=== PATIENT | male | born 1950 | race Caucasian/White ===

== ENCOUNTER 2016-08-26 15:34 | Inpatient (IN) | payer MEDICAID ==
[~2016-08-26] VITALS: Ht 167.6 cm; Wt 77.3 kg
[~2016-08-26 15:34] MED LIST: CATAPRES-T0.2 MG/24 TD; CEPHULAC10 GM/15 M PO; CLONIDINE0.1 MG PO; COMBIVENT INH14.7 GM IH; CORGARD40 MG PO; ENULOSE10 GM/151 PO; HYDROCHLOROTHIA25 MG PO; IBUPROHM200 MG PO; LANSOPRAZOLE30 MG PO; METOPROLOL TAR100 MG PO; NOVOLOG FLEX100 U/ML INJ; PREVACID 30MG30 M1 PO; PRINIVIL20 MG PO; XANAX .25M0.25 MG/TA PO
[2016-08-26 16:48] LABS: BASO # 0.1 (0.0-0.2); BASO % 1.2 % (0.0-2.0); EOS # 0.1 (0.0-0.7); GRAN # 2.5 (1.4-6.5); GRAN % 62.1 % (42.2-75.2); LYMPH # 1.1 (1.2-3.4); LYMPH % 25.9 % (20.0-51.0); MEAN CELL VOLUME 95 fl (80.0-100.0); MEAN CORPUSCULAR HGB CONC 33 g/dl (33.0-37.0); MEAN PLATELET VOLUME 10.9 fl (7.4-10.4); MONO # 0.4 (0.1-0.6); MONO % 8.6 % (1.7-9.3); PLATELET COUNT 125 K/mm3 (130-400); RED BLOOD COUNT 2.98 M/mm3 (4.20-5.60); REDCELL DISTRIBUTION WIDTH-CV 14.7 % (11.5-14.5); WHITE BLOOD COUNT 4.1 K/mm3 (4.8-10.8)
[2016-08-26] MEDS ORDERED: LOPRESSOR 225 MG/TAB PO (16:52)
[2016-08-26] MEDS ORDERED: CATAPRES 0.1MG0.1 MG PO (16:53)
[2016-08-26 16:55] LABS: HEMATOCRIT 28.4 % (42.0-52.0); HEMOGLOBIN 9.3 g/dl (13.5-18.0); MEAN CORPUSCULAR HEMOGLOBIN 31 pg (27.0-31.0)
[2016-08-26] MEDS ORDERED: ALDACTONE50 MG PO (16:55)
[2016-08-26] MEDS ORDERED: COMBIRESP IH (16:55)
[2016-08-26 17:05] LABS: ANION GAP 11 mmol/L (7-16); BLOOD UREA NITROGEN 23 mg/dL (9-20); CALCIUM 8.6 mg/dL (8.4-10.2); CARBON DIOXIDE 18 mmol/L (22-30); CHLORIDE 112 mmol/L (98-107); GLUCOSE 120 mg/dL (74-106); POTASSIUM 4.7 mmol/L (3.4-5.0); SODIUM 141 mmol/L (137-145)
[2016-08-26 17:09] LABS: C-REACTIVE PROTEIN < 0.5 mg/dL (0.0-0.9)
[2016-08-26 17:24] LABS: ERYTHROCYTE SEDIMENTATION RATE 55 mm/hr (0-30)
[2016-08-26 17:59] VITALS: BP 142/65; PULSE 104; TEMP 98.6
[2016-08-26 22:25] VITALS: BP 147/62; PULSE 66; TEMP 97.6
[2016-08-27] VITALS (8 sets, daily range): BP systolic 114–153; BP diastolic 45–63; PULSE 55–74; TEMP 97.3–98
[2016-08-27 10:09] LABS: EOS # 0.2 (0.0-0.7); EOS % 5.7 % (0-4.0); GRAN # 1.8 (1.4-6.5); GRAN % 46.5 % (42.2-75.2); LYMPH # 1.4 (1.2-3.4); LYMPH % 36.4 % (20.0-51.0); MEAN CELL VOLUME 98 fl (80.0-100.0); MEAN CORPUSCULAR HGB CONC 32 g/dl (33.0-37.0); MONO # 0.4 (0.1-0.6); MONO % 10.1 % (1.7-9.3); PLATELET COUNT 106 K/mm3 (130-400); RED BLOOD COUNT 2.78 M/mm3 (4.20-5.60); WHITE BLOOD COUNT 3.9 K/mm3 (4.8-10.8)
[2016-08-27 10:11] LABS: CALCIUM 8.1 mg/dL (8.4-10.2); CREATININE, serum 1.08 mg/dL (0.66-1.25); POTASSIUM 4.8 mmol/L (3.4-5.0)
[2016-08-27 10:26] LABS: HEMATOCRIT 27.1 % (42.0-52.0); HEMOGLOBIN 8.7 g/dl (13.5-18.0); MEAN CORPUSCULAR HEMOGLOBIN 31 pg (27.0-31.0)
[2016-08-28] VITALS (7 sets, daily range): BP systolic 104–156; BP diastolic 52–62; PULSE 57–70; TEMP 97–98.2
[2016-08-28 05:26] LABS: PH 5 (5-8); SQUAMOUS EPITHELIAL 0-2 /hpf; URINE APPEARANCE Cloudy; URINE BACTERIA Rare /hpf; URINE BILIRUBIN Positive (NEGATIVE); URINE BLOOD 3+ (NEGATIVE); URINE COLOR Amber; URINE GLUCOSE 1+ (NEGATIVE); URINE KETONE Trace (NEGATIVE); URINE RBC >50 /hpf; URINE UROBILINOGEN >=4.0 mg/dL (NEGATIVE); URINE WBC >50 /hpf
[2016-08-28 08:10] LABS: BASO % 1.1 % (0.0-2.0); EOS # 0.2 (0.0-0.7); EOS % 5.9 % (0-4.0); GRAN # 1.7 (1.4-6.5); GRAN % 46.6 % (42.2-75.2); LYMPH # 1.2 (1.2-3.4); LYMPH % 34.6 % (20.0-51.0); MEAN CELL VOLUME 98 fl (80.0-100.0); MEAN CORPUSCULAR HGB CONC 32 g/dl (33.0-37.0); MEAN PLATELET VOLUME 10.9 fl (7.4-10.4); MONO # 0.4 (0.1-0.6); MONO % 11.5 % (1.7-9.3); PLATELET COUNT 92 K/mm3 (130-400); RED BLOOD COUNT 2.65 M/mm3 (4.20-5.60); REDCELL DISTRIBUTION WIDTH-CV 14.8 % (11.5-14.5); WHITE BLOOD COUNT 3.6 K/mm3 (4.8-10.8)
[2016-08-28 08:18] LABS: HEMATOCRIT 25.9 % (42.0-52.0); HEMOGLOBIN 8.2 g/dl (13.5-18.0); MEAN CORPUSCULAR HEMOGLOBIN 31 pg (27.0-31.0)
[2016-08-28 09:09] LABS: CALCIUM 7.5 mg/dL (8.4-10.2); CREATININE, serum 1.32 mg/dL (0.66-1.25); POTASSIUM 4.6 mmol/L (3.4-5.0)
[2016-08-29 02:03] VITALS: BP 136/59; PULSE 71; TEMP 97.5
[2016-08-29 05:00] VITALS: BP 120/53; PULSE 71; TEMP 98.5
[2016-08-29 07:18] LABS: HEMATOCRIT 25.8 % (42.0-52.0); HEMOGLOBIN 8.4 g/dl (13.5-18.0)
[2016-08-29 07:37] LABS: CALCIUM 7.9 mg/dL (8.4-10.2); CREATININE, serum 1.39 mg/dL (0.66-1.25); POTASSIUM 5.4 mmol/L (3.4-5.0)
[2016-08-29 09:54] VITALS: BP 127/63; PULSE 77; TEMP 97.7
[2016-08-29 14:24] VITALS: BP 116/44; PULSE 58; TEMP 98
[2016-08-29 18:17] VITALS: BP 124/45; PULSE 69; TEMP 98.9
[2016-08-29 21:28] VITALS: BP 118/51; PULSE 65; TEMP 97.8
[2016-08-30 05:45] VITALS: BP 124/57; PULSE 65; TEMP 97.9
== END 2016-08-30 10:54 | DRG 617 ==
LOC: COL.ER 15:34 → SURG 16:13
PROVIDERS: Emergency Medicine; Family Medicine; Internal Medicine; Orthopaedic Surgery Sports Medicine
PROC: 0Y6J0Z1 Detachment at Left Lower Leg, High, Open Approach (ICD-10-PCS; principal; 2016-08-27 16:00)
DX: E11.622 Type 2 diabetes mellitus with other skin ulcer (principal); L97.224 Non-pressure chronic ulcer of left calf with necrosis of bone; M86.8X6 Other osteomyelitis, lower leg; E87.2 Acidosis; G82.20 Paraplegia, unspecified; E11.69 Type 2 diabetes mellitus with other specified complication; K70.30 Alcoholic cirrhosis of liver without ascites; N17.9 Acute kidney failure, unspecified; B96.4 Proteus (mirabilis) (morganii) as the cause of diseases classified elsewhere; I12.9 Hypertensive chronic kidney disease with stage 1 through stage 4 chronic kidney disease, or unspecified chronic kidney disease; E11.22 Type 2 diabetes mellitus with diabetic chronic kidney disease; N18.9 Chronic kidney disease, unspecified; E11.42 Type 2 diabetes mellitus with diabetic polyneuropathy; Z87.891 Personal history of nicotine dependence; Z79.4 Long term (current) use of insulin; N31.9 Neuromuscular dysfunction of bladder, unspecified; V89.2XXS Person injured in unspecified motor-vehicle accident, traffic, sequela
CPT/HCPCS: 99232-AI; 99233-AI; 99239; A4315; A9284; J0690; J0692; J2250; J2405; J2704; J3010; J3370; J7030; J7050; Q9967

== ENCOUNTER 2016-08-30 10:12 | Inpatient (IN) | payer MEDICAID ==
[~2016-08-30] VITALS: Ht 167.6 cm; Wt 56.4 kg
[~2016-08-30 10:12] MED LIST changes: +ALDACTONE50 MG PO; +CATAPRES 0.1MG0.1 MG PO; +COMBIRESP IH; +LOPRESSOR 225 MG/TAB PO
[2016-08-30 11:44] VITALS: BP 127/34; PULSE 69; TEMP 98.8
[2016-08-30 16:42] VITALS: BP 131/45; PULSE 64; TEMP 97.8
[2016-08-30 17:55] VITALS: BP 131/45; PULSE 64; TEMP 97.8
[2016-08-30 18:02] LABS: CALCIUM 8.2 mg/dL (8.4-10.2); CREATININE, serum 1.16 mg/dL (0.66-1.25); POTASSIUM 5.3 mmol/L (3.4-5.0)
[2016-08-31 04:54] VITALS: BP 134/51; PULSE 72; TEMP 98.4
[2016-08-31 16:20] VITALS: BP 115/50; PULSE 60; TEMP 97.9
[2016-09-01 04:38] VITALS: BP 138/59; PULSE 58; TEMP 97.8
[2016-09-01 07:35] LABS: MEAN CELL VOLUME 95 fl (80.0-100.0); MEAN CORPUSCULAR HGB CONC 33 g/dl (33.0-37.0); MEAN PLATELET VOLUME 11.4 fl (7.4-10.4); PLATELET COUNT 91 K/mm3 (130-400); RED BLOOD COUNT 2.44 M/mm3 (4.20-5.60); WHITE BLOOD COUNT 2.8 K/mm3 (4.8-10.8)
[2016-09-01 07:40] LABS: CALCIUM 7.9 mg/dL (8.4-10.2); CREATININE, serum 1.14 mg/dL (0.66-1.25); MAGNESIUM 2.1 mg/dL (1.6-2.3); POTASSIUM 4.9 mmol/L (3.4-5.0)
[2016-09-01 07:58] LABS: HEMATOCRIT 23.2 % (42.0-52.0); HEMOGLOBIN 7.6 g/dl (13.5-18.0); MEAN CORPUSCULAR HEMOGLOBIN 31 pg (27.0-31.0)
[2016-09-01 07:59] LABS: ADD PATHOLOGY DIFF REVIEW NO
[2016-09-01 09:14] LABS: ANISOCYTOSIS 1+; BAND 2 % (0-10); BASOPHIL 1 % (0-2); EOSINOPHIL 2 % (0-4); NEUTROPHILS 45 % (42.0-75.2); OVALOCYTES 1+; PLATELET ESTIMATE DECREASED (NORMAL); TOTAL CELLS COUNTED 100
[2016-09-01 17:06] VITALS: BP 136/53; PULSE 65; TEMP 97.9
[2016-09-01] MEDS ORDERED: ALDACTONE50 MG PO (20:50)
[2016-09-02] MEDS ORDERED: BP MED (02:02)
[2016-09-02 05:31] VITALS: BP 108/35; PULSE 62; TEMP 98.3
[2016-09-02 10:11] VITALS: BP 128/48; PULSE 65; TEMP 98.9
[2016-09-02 16:35] VITALS: BP 120/51; PULSE 66; TEMP 98.6
[2016-09-02 21:00] VITALS: BP 120/73; PULSE 68
[2016-09-03 04:51] VITALS: BP 110/42; PULSE 71; TEMP 98.4
[2016-09-03 08:49] VITALS: BP 120/57; PULSE 65; TEMP 98.9
[2016-09-03 17:31] VITALS: BP 121/49; PULSE 62; TEMP 98
[2016-09-03 21:00] VITALS: BP 149/59; PULSE 73; TEMP 99
[2016-09-04 06:49] VITALS: BP 137/45; PULSE 70; TEMP 98.3
[2016-09-04 07:55] LABS: HEMATOCRIT 25.9 % (42.0-52.0); HEMOGLOBIN 8.6 g/dl (13.5-18.0)
[2016-09-04 11:20] LABS: PH 5 (5-8); SQUAMOUS EPITHELIAL None Seen /hpf; URINE APPEARANCE Clear; URINE BACTERIA None Seen /hpf; URINE BILIRUBIN Negative (NEGATIVE); URINE BLOOD 2+ (NEGATIVE); URINE COLOR Yellow; URINE GLUCOSE Negative (NEGATIVE); URINE KETONE Negative (NEGATIVE); URINE UROBILINOGEN Negative (NEGATIVE)
[2016-09-04 18:29] VITALS: BP 119/44; PULSE 69; TEMP 98.9
[2016-09-04 20:30] VITALS: BP 132/52; PULSE 79
[2016-09-05 04:20] VITALS: BP 117/45; PULSE 61; TEMP 98.5
[2016-09-05 17:27] VITALS: BP 137/49; PULSE 68; TEMP 98.7
[2016-09-06 05:09] VITALS: BP 135/58; PULSE 71; TEMP 99.9
[2016-09-06 18:10] VITALS: BP 137/42; PULSE 55; TEMP 99.2
[2016-09-07 03:22] VITALS: BP 124/65; PULSE 69; TEMP 97.7
[2016-09-07 16:19] VITALS: BP 130/46; PULSE 60; TEMP 98.4
[2016-09-08 04:25] VITALS: BP 140/53; PULSE 63; TEMP 97.7
[2016-09-08 16:18] VITALS: BP 148/39; PULSE 65; TEMP 98.1
[2016-09-09 04:45] VITALS: BP 111/44; PULSE 62; TEMP 97.6
[2016-09-09] MEDS ORDERED: ASPI325T6 PO (09:44)
[2016-09-09] MEDS ORDERED: CELEXA 20MG20 MG/TAB PO (09:44)
[2016-09-09] MEDS ORDERED: HCTZ 25MG TAB25 MG PO (09:44)
[2016-09-09] MEDS ORDERED: CATAPRES 0.1MG0.1 MG PO (09:45)
[2016-09-09] MEDS ORDERED: ZESTRIL 20MG TA20 MG PO (09:45)
[2016-09-09] MEDS ORDERED: LOPRESSOR 225 MG/TAB PO (09:45)
[2016-09-09] MEDS ORDERED: FERROUS SU325 MG/TAB PO (09:46)
== END 2016-09-09 11:45 | disposition home health service (06) | DRG 948 ==
PROVIDERS: Family Medicine; Internal Medicine
DX: R53.81 Other malaise (principal); L97.429 Non-pressure chronic ulcer of left heel and midfoot with unspecified severity; G82.20 Paraplegia, unspecified; E11.621 Type 2 diabetes mellitus with foot ulcer; Z89.512 Acquired absence of left leg below knee; I10 Essential (primary) hypertension; N31.9 Neuromuscular dysfunction of bladder, unspecified; D50.0 Iron deficiency anemia secondary to blood loss (chronic); F43.21 Adjustment disorder with depressed mood
CPT/HCPCS: 99222-AI; 99232-AI; 99239; J1650

== ENCOUNTER 2017-05-08 17:41 | Inpatient (IN) | payer MEDICAID ==
[~2017-05-08] VITALS: Ht 170.2 cm; Wt 75.2 kg
[~2017-05-08 17:41] MED LIST changes: +ASPI325T6 PO; +BP MED; +CELEXA 20MG20 MG/TAB PO; +FERROUS SU325 MG/TAB PO; +HCTZ 25MG TAB25 MG PO; +ZESTRIL 20MG TA20 MG PO
[2017-05-08 18:39] LABS: BASO % 0.7 % (0.0-2.0); EOS # 0.1 (0.0-0.7); EOS % 2.1 % (0-4.0); GRAN # 3.9 (1.4-6.5); GRAN % 68.6 % (42.2-75.2); HEMATOCRIT 31.3 % (42.0-52.0); HEMOGLOBIN 10.1 g/dl (13.5-18.0); LYMPH # 1.2 (1.2-3.4); LYMPH % 20.8 % (20.0-51.0); MEAN CELL VOLUME 99 fl (80.0-100.0); MEAN CORPUSCULAR HEMOGLOBIN 32 pg (27.0-31.0); MEAN CORPUSCULAR HGB CONC 32 g/dl (33.0-37.0); MEAN PLATELET VOLUME 10.5 fl (7.4-10.4); MONO # 0.4 (0.1-0.6); MONO % 7.6 % (1.7-9.3); PLATELET COUNT 134 K/mm3 (130-400); RED BLOOD COUNT 3.15 M/mm3 (4.20-5.60); WHITE BLOOD COUNT 5.6 K/mm3 (4.8-10.8)
[2017-05-08] MEDS ORDERED: LASIX 20MG TABL20 MG PO (18:42)
[2017-05-08] MEDS ORDERED: MYRBETR25MG PO (18:43)
[2017-05-08] MEDS ORDERED: FERROUS SU325 MG/TAB PO (18:46)
[2017-05-08 18:47] LABS: LACTIC ACID 1.9 mmol/L (0.4-2.0)
[2017-05-08] MEDS ORDERED: CATAPRES-TTS 30.3 MG TD (18:47)
[2017-05-08 18:51] LABS: ADJUSTED CALCIUM 9.3 mg/dL (8.4-10.2); ALBUMIN 2.7 gm/dL (3.5-5.0); BILIRUBIN,TOTAL 1.4 mg/dL (0.0-1.0); C-REACTIVE PROTEIN 1.9 mg/dL (0.0-0.9); CALCIUM 8.3 mg/dL (8.4-10.2); CREATININE, serum 1.37 mg/dL (0.66-1.25); POTASSIUM 3.8 mmol/L (3.4-5.0); TOTAL PROTEIN 7.5 gm/dL (6.4-8.2)
[2017-05-08 19:05] LABS: ERYTHROCYTE SEDIMENTATION RATE 84 mm/hr (0-30)
[2017-05-08 20:20] LABS: HEMOGLOBIN A1C 4.7 %
[2017-05-08 21:54] VITALS: BP 149/57; PULSE 109; TEMP 98.8
[2017-05-09] VITALS (14 sets, daily range): BP systolic 135–166; BP diastolic 57–76; PULSE 72–111; TEMP 97.6–99
[2017-05-09 01:03] LABS: MUCOUS Present /lpf; PH 5 (5-8); SQUAMOUS EPITHELIAL 0-2 /hpf; URINE APPEARANCE Clear; URINE BACTERIA None Seen /hpf; URINE BILIRUBIN Negative (NEGATIVE); URINE BLOOD 3+ (NEGATIVE); URINE COLOR Yellow; URINE GLUCOSE Negative (NEGATIVE); URINE KETONE Negative (NEGATIVE); URINE LEUKOCYTE ESTERASE Negative (NEGATIVE); URINE PROTEIN(semi-quant) 1+ (NEGATIVE); URINE RBC 20-50 /hpf; URINE UROBILINOGEN Negative (NEGATIVE)
[2017-05-09 02:07] LABS: URINE WBC 0-2 /hpf
[2017-05-09 03:17] LABS: COLLECTION METHOD CLEAN CATCH
[2017-05-09 07:22] LABS: BASO % 0.6 % (0.0-2.0); EOS # 0.2 (0.0-0.7); EOS % 2.5 % (0-4.0); GRAN # 4.8 (1.4-6.5); GRAN % 70.3 % (42.2-75.2); LYMPH # 1.2 (1.2-3.4); LYMPH % 17.5 % (20.0-51.0); MEAN CELL VOLUME 98 fl (80.0-100.0); MEAN CORPUSCULAR HGB CONC 32 g/dl (33.0-37.0); MONO # 0.6 (0.1-0.6); MONO % 8.5 % (1.7-9.3); PLATELET COUNT 111 K/mm3 (130-400); WHITE BLOOD COUNT 6.8 K/mm3 (4.8-10.8)
[2017-05-09 07:24] LABS: HEMATOCRIT 28.5 % (42.0-52.0); HEMOGLOBIN 9.2 g/dl (13.5-18.0); MEAN CORPUSCULAR HEMOGLOBIN 32 pg (27.0-31.0)
[2017-05-09 07:30] LABS: CALCIUM 7.9 mg/dL (8.4-10.2); CREATININE, serum 1.13 mg/dL (0.66-1.25); POTASSIUM 4.2 mmol/L (3.4-5.0)
[2017-05-10 01:40] VITALS: BP 153/65; PULSE 89; TEMP 98.2
[2017-05-10 05:52] VITALS: BP 165/72; PULSE 77; TEMP 98.6
[2017-05-10 06:50] LABS: HEMOGLOBIN 9.4 g/dl (13.5-18.0)
[2017-05-10 09:15] VITALS: BP 180/76; PULSE 81
[2017-05-10 14:31] VITALS: BP 149/77; PULSE 79; TEMP 97.9
[2017-05-10 18:18] VITALS: BP 127/51; PULSE 79; TEMP 98.1
[2017-05-10 20:12] VITALS: BP 149/65; PULSE 78; TEMP 98.5
[2017-05-11] VITALS (7 sets, daily range): BP systolic 133–1445; BP diastolic 53–69; PULSE 75–86; TEMP 98–99
[2017-05-11 08:20] LABS: BASO % 0.6 % (0.0-2.0); EOS # 0.2 (0.0-0.7); EOS % 2.9 % (0-4.0); GRAN # 4.1 (1.4-6.5); GRAN % 67.2 % (42.2-75.2); LYMPH # 1.2 (1.2-3.4); LYMPH % 19.6 % (20.0-51.0); MEAN CELL VOLUME 99 fl (80.0-100.0); MEAN CORPUSCULAR HGB CONC 32 g/dl (33.0-37.0); MEAN PLATELET VOLUME 10.2 fl (7.4-10.4); MONO # 0.6 (0.1-0.6); MONO % 9.1 % (1.7-9.3); PLATELET COUNT 112 K/mm3 (130-400); RED BLOOD COUNT 2.69 M/mm3 (4.20-5.60); WHITE BLOOD COUNT 6.2 K/mm3 (4.8-10.8)
[2017-05-11 08:22] LABS: HEMATOCRIT 26.6 % (42.0-52.0); HEMOGLOBIN 8.6 g/dl (13.5-18.0); MEAN CORPUSCULAR HEMOGLOBIN 32 pg (27.0-31.0)
[2017-05-11 08:37] LABS: C-REACTIVE PROTEIN 2.6 mg/dL (0.0-0.9); CALCIUM 7.7 mg/dL (8.4-10.2); CREATININE, serum 1.28 mg/dL (0.66-1.25); POTASSIUM 3.7 mmol/L (3.4-5.0)
[2017-05-11 09:40] LABS: ERYTHROCYTE SEDIMENTATION RATE 46 mm/hr (0-30)
[2017-05-12 05:38] VITALS: BP 178/71; PULSE 78; TEMP 98.2
[2017-05-12 07:22] LABS: BASO # 0.1 (0.0-0.2); BASO % 0.8 % (0.0-2.0); EOS # 0.2 (0.0-0.7); EOS % 2.2 % (0-4.0); GRAN # 5.4 (1.4-6.5); GRAN % 72.4 % (42.2-75.2); LYMPH # 1.2 (1.2-3.4); LYMPH % 15.7 % (20.0-51.0); MEAN CELL VOLUME 100 fl (80.0-100.0); MEAN CORPUSCULAR HGB CONC 32 g/dl (33.0-37.0); MEAN PLATELET VOLUME 10.8 fl (7.4-10.4); MONO # 0.6 (0.1-0.6); MONO % 8.2 % (1.7-9.3); PLATELET COUNT 123 K/mm3 (130-400); RED BLOOD COUNT 2.93 M/mm3 (4.20-5.60); WHITE BLOOD COUNT 7.4 K/mm3 (4.8-10.8)
[2017-05-12 07:42] LABS: HEMATOCRIT 29.2 % (42.0-52.0); HEMOGLOBIN 9.4 g/dl (13.5-18.0); MEAN CORPUSCULAR HEMOGLOBIN 32 pg (27.0-31.0)
[2017-05-12 07:44] LABS: ADJUSTED CALCIUM 9.5 mg/dL (8.4-10.2); ALBUMIN 2.3 gm/dL (3.5-5.0); CALCIUM 8.1 mg/dL (8.4-10.2); CREATININE, serum 1.28 mg/dL (0.66-1.25); POTASSIUM 3.8 mmol/L (3.4-5.0); TOTAL PROTEIN 6.5 gm/dL (6.4-8.2)
[2017-05-12 09:14] VITALS: BP 151/70; PULSE 89; TEMP 99
[2017-05-12 13:20] VITALS: BP 145/68; PULSE 76; TEMP 97.6
[2017-05-12 16:51] VITALS: BP 140/56; PULSE 86; TEMP 98.6
[2017-05-12 21:38] VITALS: BP 145/69; PULSE 87; TEMP 98.5
[2017-05-13] VITALS (7 sets, daily range): BP systolic 93–135; BP diastolic 36–57; PULSE 67–77; TEMP 97.8–98.3
[2017-05-13 07:42] LABS: BASO % 0.4 % (0.0-2.0); EOS # 0.1 (0.0-0.7); EOS % 0.7 % (0-4.0); GRAN # 5.2 (1.4-6.5); GRAN % 68.2 % (42.2-75.2); LYMPH # 1.5 (1.2-3.4); LYMPH % 19.8 % (20.0-51.0); MEAN CELL VOLUME 100 fl (80.0-100.0); MEAN CORPUSCULAR HGB CONC 33 g/dl (33.0-37.0); MEAN PLATELET VOLUME 10.8 fl (7.4-10.4); MONO # 0.8 (0.1-0.6); PLATELET COUNT 98 K/mm3 (130-400); RED BLOOD COUNT 2.77 M/mm3 (4.20-5.60); WHITE BLOOD COUNT 7.6 K/mm3 (4.8-10.8)
[2017-05-13 07:44] LABS: HEMATOCRIT 27.7 % (42.0-52.0); MEAN CORPUSCULAR HEMOGLOBIN 32 pg (27.0-31.0)
[2017-05-13 07:48] LABS: ADJUSTED CALCIUM 9.6 mg/dL (8.4-10.2); C-REACTIVE PROTEIN 1.6 mg/dL (0.0-0.9); CREATININE, serum 1.41 mg/dL (0.66-1.25); POTASSIUM 3.8 mmol/L (3.4-5.0); TOTAL PROTEIN 6.2 gm/dL (6.4-8.2)
[2017-05-14 02:08] VITALS: BP 122/45; PULSE 71; TEMP 98.1
[2017-05-14 05:05] VITALS: BP 113/53; PULSE 68; TEMP 98.1
[2017-05-14 06:32] LABS: BASO # 0.1 (0.0-0.2); BASO % 0.8 % (0.0-2.0); EOS # 0.2 (0.0-0.7); EOS % 2.3 % (0-4.0); GRAN # 4.2 (1.4-6.5); GRAN % 64.9 % (42.2-75.2); HEMATOCRIT 26.6 % (42.0-52.0); HEMOGLOBIN 8.5 g/dl (13.5-18.0); LYMPH # 1.4 (1.2-3.4); LYMPH % 21.2 % (20.0-51.0); MEAN CELL VOLUME 100 fl (80.0-100.0); MEAN CORPUSCULAR HEMOGLOBIN 32 pg (27.0-31.0); MEAN CORPUSCULAR HGB CONC 32 g/dl (33.0-37.0); MEAN PLATELET VOLUME 10.5 fl (7.4-10.4); MONO # 0.7 (0.1-0.6); MONO % 10.3 % (1.7-9.3); PLATELET COUNT 87 K/mm3 (130-400); RED BLOOD COUNT 2.65 M/mm3 (4.20-5.60); WHITE BLOOD COUNT 6.4 K/mm3 (4.8-10.8)
[2017-05-14 06:46] LABS: C-REACTIVE PROTEIN 1.9 mg/dL (0.0-0.9); CALCIUM 7.9 mg/dL (8.4-10.2); CREATININE, serum 1.7 mg/dL (0.66-1.25); MAGNESIUM 2.3 mg/dL (1.6-2.3); POTASSIUM 3.9 mmol/L (3.4-5.0)
[2017-05-14 06:56] LABS: ERYTHROCYTE SEDIMENTATION RATE 22 mm/hr (0-30)
[2017-05-14 09:27] VITALS: BP 111/40; PULSE 74; TEMP 98.2
[2017-05-14 14:06] VITALS: BP 134/54; PULSE 75; TEMP 98.5
[2017-05-14 16:56] VITALS: BP 133/53; PULSE 76; TEMP 97.9
[2017-05-14 21:26] VITALS: BP 133/57; PULSE 96; TEMP 97.9
[2017-05-15 02:06] VITALS: BP 114/52; PULSE 78; TEMP 97.9
[2017-05-15 05:28] VITALS: BP 128/55; PULSE 74; TEMP 98
[2017-05-15 06:50] LABS: BASO # 0.1 (0.0-0.2); BASO % 0.7 % (0.0-2.0); EOS # 0.3 (0.0-0.7); EOS % 3.8 % (0-4.0); GRAN # 4.7 (1.4-6.5); GRAN % 58.4 % (42.2-75.2); LYMPH # 2.1 (1.2-3.4); MEAN CELL VOLUME 100 fl (80.0-100.0); MEAN CORPUSCULAR HGB CONC 32 g/dl (33.0-37.0); MEAN PLATELET VOLUME 11.3 fl (7.4-10.4); MONO # 0.9 (0.1-0.6); MONO % 10.5 % (1.7-9.3); PLATELET COUNT 86 K/mm3 (130-400); RED BLOOD COUNT 2.64 M/mm3 (4.20-5.60); WHITE BLOOD COUNT 8.1 K/mm3 (4.8-10.8)
[2017-05-15 06:57] LABS: HEMATOCRIT 26.5 % (42.0-52.0); HEMOGLOBIN 8.4 g/dl (13.5-18.0); MEAN CORPUSCULAR HEMOGLOBIN 32 pg (27.0-31.0)
[2017-05-15 07:10] LABS: INR 1.3 (0.8-3.0); PROTHROMBIN TIME 14.7 SECONDS (9.7-12.8)
[2017-05-15 07:20] LABS: CALCIUM 7.9 mg/dL (8.4-10.2); CREATININE, serum 2.1 mg/dL (0.66-1.25)
[2017-05-15 09:33] VITALS: BP 114/56; PULSE 87; TEMP 97.8
[2017-05-15 14:19] VITALS: BP 132/55; PULSE 73; TEMP 98.7
[2017-05-15 17:49] VITALS: BP 125/58; PULSE 70; TEMP 98.1
[2017-05-15 22:20] VITALS: BP 112/48; PULSE 71; TEMP 98.3
[2017-05-16 05:34] VITALS: BP 116/58; PULSE 67; TEMP 97.9
[2017-05-16 06:19] LABS: CALCIUM 7.8 mg/dL (8.4-10.2); CREATININE, serum 2.32 mg/dL (0.66-1.25); MAGNESIUM 2.2 mg/dL (1.6-2.3); POTASSIUM 4.1 mmol/L (3.4-5.0)
[2017-05-16 08:00] VITALS: BP 130/59; PULSE 77; TEMP 97.7
[2017-05-16 11:44] LABS: BUDDING YEAST Present /hpf; HYALINE CAST >12 /lpf; MUCOUS Present /lpf; PH 5 (5-8); URINE APPEARANCE Turbid; URINE BACTERIA None Seen /hpf; URINE BILIRUBIN Negative (NEGATIVE); URINE BLOOD 3+ (NEGATIVE); URINE COLOR Amber; URINE GLUCOSE Negative (NEGATIVE); URINE KETONE Trace (NEGATIVE); URINE LEUKOCYTE ESTERASE 3+ (NEGATIVE); URINE PROTEIN(semi-quant) 2+ (NEGATIVE); URINE RBC >50 /hpf; URINE UROBILINOGEN Negative (NEGATIVE); URINE WBC >50 /hpf; WAXY CAST >12 /lpf
[2017-05-16 11:46] LABS: COLLECTION METHOD CLEAN CATCH
[2017-05-16 11:53] LABS: URINE PROTEIN:CREAT RATIO 0.69 (0.00-0.14)
[2017-05-16 14:00] VITALS: BP 119/47; PULSE 66; TEMP 98.7
[2017-05-16 17:01] VITALS: BP 104/42; PULSE 64; TEMP 98.2
[2017-05-16 22:00] VITALS: BP 126/62; PULSE 66; TEMP 97.7
[2017-05-17 01:39] VITALS: BP 127/61; PULSE 67; TEMP 7.8
[2017-05-17 06:22] VITALS: BP 123/62; PULSE 66; TEMP 98
[2017-05-17 06:22] LABS: BASO # 0.1 (0.0-0.2); BASO % 0.8 % (0.0-2.0); EOS # 0.5 (0.0-0.7); EOS % 5.9 % (0-4.0); GRAN # 4.7 (1.4-6.5); LYMPH # 2.1 (1.2-3.4); LYMPH % 25.7 % (20.0-51.0); MEAN CELL VOLUME 99 fl (80.0-100.0); MEAN CORPUSCULAR HGB CONC 33 g/dl (33.0-37.0); MEAN PLATELET VOLUME 11.2 fl (7.4-10.4); MONO # 0.9 (0.1-0.6); MONO % 11.2 % (1.7-9.3); PLATELET COUNT 88 K/mm3 (130-400); RED BLOOD COUNT 2.77 M/mm3 (4.20-5.60); WHITE BLOOD COUNT 8.3 K/mm3 (4.8-10.8)
[2017-05-17 06:24] LABS: HEMATOCRIT 27.4 % (42.0-52.0); HEMOGLOBIN 8.9 g/dl (13.5-18.0); MEAN CORPUSCULAR HEMOGLOBIN 32 pg (27.0-31.0)
[2017-05-17 06:39] LABS: CALCIUM 7.9 mg/dL (8.4-10.2); CREATININE, serum 2.56 mg/dL (0.66-1.25)
[2017-05-17 09:20] VITALS: BP 113/44; PULSE 67; TEMP 97.9
[2017-05-17 13:26] VITALS: BP 149/67; PULSE 69; TEMP 97.8
[2017-05-17 17:27] VITALS: BP 122/45; PULSE 69; TEMP 98.3
[2017-05-17 22:04] VITALS: BP 121/45; PULSE 70; TEMP 97.6
[2017-05-18] VITALS (8 sets, daily range): BP systolic 105–132; BP diastolic 43–61; PULSE 61–70; TEMP 97.6–97.8
[2017-05-18 06:07] LABS: BASO # 0.1 (0.0-0.2); BASO % 1.1 % (0.0-2.0); EOS # 0.4 (0.0-0.7); EOS % 4.7 % (0-4.0); GRAN # 4.2 (1.4-6.5); GRAN % 56.6 % (42.2-75.2); LYMPH # 1.9 (1.2-3.4); LYMPH % 25.1 % (20.0-51.0); MEAN CELL VOLUME 100 fl (80.0-100.0); MEAN CORPUSCULAR HGB CONC 32 g/dl (33.0-37.0); MEAN PLATELET VOLUME 11.1 fl (7.4-10.4); MONO # 0.9 (0.1-0.6); MONO % 12.1 % (1.7-9.3); PLATELET COUNT 93 K/mm3 (130-400); RED BLOOD COUNT 2.75 M/mm3 (4.20-5.60); WHITE BLOOD COUNT 7.4 K/mm3 (4.8-10.8)
[2017-05-18 06:16] LABS: HEMOGLOBIN 8.9 g/dl (13.5-18.0); MEAN CORPUSCULAR HEMOGLOBIN 32 pg (27.0-31.0)
[2017-05-18 06:17] LABS: HEMATOCRIT 27.5 % (42.0-52.0)
[2017-05-18 06:20] LABS: ADJUSTED CALCIUM 9.6 mg/dL (8.4-10.2); ALBUMIN 1.9 gm/dL (3.5-5.0); BILIRUBIN,TOTAL 0.7 mg/dL (0.0-1.0); CALCIUM 7.9 mg/dL (8.4-10.2); CREATININE, serum 2.75 mg/dL (0.66-1.25); MAGNESIUM 2.4 mg/dL (1.6-2.3); POTASSIUM 4.1 mmol/L (3.4-5.0)
[2017-05-18] MEDS ORDERED: MAXIPIME1 GM IV (09:00)
[2017-05-18] MEDS ORDERED: HEPARIN LOCK FLU5 M1 IV ×2 (09:01)
[2017-05-18] MEDS ORDERED: IPRATROPIUM BROM3 M1 IH (09:01)
[2017-05-18] MEDS ORDERED: HEPARIN SOD5000 U/ML SQ (09:01)
[2017-05-18] MEDS ORDERED: NORVASC 5MG5 MG/TAB PO (09:02)
[2017-05-18] MEDS ORDERED: NORCO 325 MG-51 TAB PO (09:03)
[2017-05-18] MEDS ORDERED: LACTULOSE10 GM/153 PO (09:03)
[2017-05-18] MEDS ORDERED: TYLENOL 325MG325 MG PO (09:03)
[2017-05-18] MEDS ORDERED: NS INT FLUSH 1010 ML IV ×2 (09:04)
[2017-05-18] MEDS ORDERED: ZOFRAN INJ4 MG/2 ML IV (09:04)
[2017-05-18] MEDS ORDERED: PROTONIX 40MG T40 MG PO (09:05)
[2017-05-18] MEDS ORDERED: NOVLOG SQ (09:05)
[2017-05-18 09:49] LABS: INR 1.2 (0.8-3.0)
== END 2017-05-18 16:25 | DRG 570 ==
LOC: COL.ER 17:41 → SURG 19:29
PROVIDERS: Emergency Medicine; Internal Medicine; Nurse Practitioner Family; Physician Assistant; Radiology Diagnostic Radiology; Surgery
PROC: 0JB70ZZ Excision of Back Subcutaneous Tissue and Fascia, Open Approach (ICD-10-PCS; principal; 2017-05-09 07:30)
PROC: 0W9G3ZZ Drainage of Peritoneal Cavity, Percutaneous Approach (ICD-10-PCS; 2017-05-18)
DX: L89.323 Pressure ulcer of left buttock, stage 3 (principal); N17.9 Acute kidney failure, unspecified; G82.20 Paraplegia, unspecified; E87.2 Acidosis; T14.8XXS Other injury of unspecified body region, sequela; V49.9XXS Car occupant (driver) (passenger) injured in unspecified traffic accident, sequela; I12.9 Hypertensive chronic kidney disease with stage 1 through stage 4 chronic kidney disease, or unspecified chronic kidney disease; E11.22 Type 2 diabetes mellitus with diabetic chronic kidney disease; N18.3 Chronic kidney disease, stage 3 (moderate); Z89.512 Acquired absence of left leg below knee; N31.9 Neuromuscular dysfunction of bladder, unspecified; N39.498 Other specified urinary incontinence; K70.9 Alcoholic liver disease, unspecified; Z87.891 Personal history of nicotine dependence; B18.2 Chronic viral hepatitis C; K70.31 Alcoholic cirrhosis of liver with ascites; F10.21 Alcohol dependence, in remission; D64.9 Anemia, unspecified
CPT/HCPCS: 99222-AI; 99232-AI; 99233-AI; 99239; A9585; C1751; J0360; J0690; J0692; J1170; J1644; J1815; J2270; J2405; J2543; J2704; J2765; J3010; J3370; J7030; J7050; P9047